=== PATIENT | male | born 1955 | race African-American/Black ===

== ENCOUNTER 2018-09-15 09:11 | Inpatient (IN) | payer BC ==
[2018-09-14 18:10] VITALS: Ht 177.8 cm; Wt 113.6 kg
[~2018-09-15] VITALS: Ht 177.8 cm; Wt 113.6 kg
[2018-09-15] VITALS (17 sets, daily range): BP systolic 110–142; BP diastolic 63–88; PULSE 62–95; RESP 13–19
[~2018-09-15 09:11] MED LIST: BENA40TA56 PO; HYDR12.58 PO; SIMV20TA2 PO; VASOPRESSIN 20 UNITS INJ IV ONE; [UNRECOGNIZED DRUG - REMARK]
[2018-09-15] MEDS ORDERED: CEFAZOLIN 2 GM/50 ML (PMX) 50 ML (FOR WT < 120 KG) IVPB ONE (09:30)
[2018-09-15] MEDS ORDERED: LACTATED RINGER'S 1,000 ML IV SCH (09:30)
[2018-09-15] MEDS ORDERED: GABA300C16 ORAL (10:19)
[2018-09-15] MEDS ORDERED: SIMV20TA20 ORAL (10:19)
[2018-09-15] MEDS ORDERED: HYDR-3672 ORAL (10:19)
[2018-09-15] MEDS ORDERED: AMLO5TAB4 PO (10:19)
[2018-09-15] MEDS ORDERED: BENA1TAB14 ORAL (10:19)
[2018-09-15] MEDS ORDERED: ESCI10TA48 ORAL (10:19)
[2018-09-15] MEDS ORDERED: CHOL100062 PO (10:19)
[2018-09-15] MEDS ORDERED: TAMS-14 PO (10:19)
[2018-09-15] MEDS ORDERED: ALLO100T ORAL (10:26)
--- NOTE | 2018-09-15 10:50 | HPN ---
Date/Time of Note Date/Time of Note DATE: 09/15/18 TIME: 10:50 Interval H&P Admission Note Pt. seen H&P reviewed: No system changes patient evaluated today and H&P dictated. BETH POLANCO MD Sep 15, 2018 10:50
[2018-09-15] MEDS ORDERED: THROMBIN 5000 UNIT (RECOTHROM) VIAL ONE (12:20)
[2018-09-15] MEDS ORDERED: LIDOCAINE 1%/EPI 30 ML INJ ONE (12:20)
[2018-09-15] MEDS ORDERED: GELATIN SIZE 100 SPONGE ONE (12:20)
[2018-09-15] MEDS ORDERED: POLYMYXIN/BACITRACIN 1L IRRIG ONE (12:21)
[2018-09-15] MEDS ORDERED: LIDOCAINE 0.5% (SDV) 50 ML INJ ONE (12:21)
--- NOTE | 2018-09-15 12:25 | PREAC ---
Date/Time of Note Date/Time of Note DATE: 09/15/18 TIME: 12:22 Anesthesia Eval and Record Evaluation Time Pre-Procedure Interview DATE: 09/15/18 TIME: 12:22 Age 63 Sex male NPO: 8 hrs Preoperative diagnosis cervical stenosis Planned procedure cervical 3 to five discectomy and corpectomy and instrumentation Past Medical History Past Medical History: Includes Cardio: HTN Pulm: Smoking Hx Neuro: Peripheral neuropathy Musculoskeletal: Osteoarthritis GI: Obesity Psych: Anxiety Surgery & Anesthesia Issues No known issue Meds Anticoagulation: No Beta Franko within 24 hr: No Reason Beta Franko not given: Pt. not on B-Franko Reported Medications Allopurinol* (Allopurinol*) 100 Mg Tablet, 1 TAB ORAL DAILY 09/15/18 Simvastatin (Simvastatin) 20 Mg Tablet, 1 TAB ORAL DAILY 09/15/18 Amlodipine Besylate* (Norvasc*) 5 Mg Tablet, 5 MG PO DAILY, TAB 09/15/18 Tamsulosin Hcl* (Flomax*) 0.4 Mg Cap.er.24h, 0.4 MG PO DAILY, CAP 09/15/18 Benazepril-Hydrochlorothiazide (Benazepril-Hydrochlorothiazide) 20-25 Mg Tablet, 1 TAB ORAL DAILY 09/15/18 Gabapentin* (Gabapentin*) 300 Mg Capsule, 1 CAP ORAL BID 09/15/18 Escitalopram Oxalate* (Escitalopram Oxalate*) 10 Mg Tablet, 1 TAB ORAL DAILY 09/15/18 Cholecalciferol* (Vitamin D3*) 1,000 Unit Tablet, 2000 UNIT PO DAILY, TAB 09/15/18 Hydralazine Hcl* (Apresoline*) 50 Mg Tab, 1 TAB ORAL TID 09/15/18 Discontinued Reported Medications Simvastatin (Simvastatin) 20 Mg Tablet, 20 MG PO HS 03/17/12 Hydrochlorothiazide* (Hydrochlorothiazide*) 12.5 Mg Tablet, 12.5 MG PO DAILY 03/17/12 Benazepril Hcl* (Benazepril Hcl*) 40 Mg Tablet, 40 MG PO DAILY 03/17/12 [New Meds Today] No Conflict Check 07/26/09 Current Medications Lactated Ringer's 1,000 ml @ 25 mls/hr Q24H IV ; Start 09/15/18 at 09:30 Meds reviewed: Yes Allergies Coded Allergies: No Known Allergies (Verified Allergy, Mild, 09/15/18) Allergies Reviewed: Yes Labs/Studies Labs Reviewed: Reviewed by anesthesiologist Blood Bank Test 09/15/18 10:00 Antibody Screen NEGATIVE Blood Type A POSITIVE test: N/A Pre-procedure Exam Last vitals Vital Signs Date Temp Pulse Resp B/P (MAP) Pulse Ox O2 O2 Flow FiO2 Time Delivery Rate 09/15/18 98.2 62 16 119/64 98 Room Air 10:11 (82) Airway: Adequate mouth opening, Adequate thyromental dist Mallampati: Mallampati IV Teeth: Normal Lung: Normal Heart: Normal ASA Physical Status ASA physical status: 3 Emergency: None Pre-operative Attestations Prior to commencing anesthesia and surgery, the patient was re-evaluated, there was verification of: *The patient's identity *The results of appropriate recent lab work and preoperative vital signs *The above evaluation not changing prior to induction *Anesthetic plan, risk benefits, alternative and complications discussed with patient/family; questions answered; patient/family understands, accepts and wishes to proceed. DAVID ALONZO DO Sep 15, 2018 12:25
[2018-09-15] MEDS ORDERED: LABETALOL HCL 20MG INJ IV PRN (12:30)
[2018-09-15] MEDS ORDERED: hydrALAzine 20 MG INJ IV PRN ×2 (12:30→17:00)
[2018-09-15] MEDS ORDERED: HYDROmorphONE 1 MG/5 ML IV SYRINGE IV PRN ×3 (12:30)
[2018-09-15] MEDS ORDERED: MIDAZOLAM 1 MG/ML 2 ML INJ ONE (12:37)
[2018-09-15] MEDS ORDERED: LIDOCAINE 1% (MDV) 20 ML INJ ONE (12:37)
[2018-09-15] MEDS ORDERED: ROCURONIUM 50 MG INJ ONE (12:37)
[2018-09-15] MEDS ORDERED: DESFLURANE 15 MIN ONE (12:37)
[2018-09-15] MEDS ORDERED: SUCCINYLCHOLINE CHLORIDE 100 MG/5 ML SYG IV ONE (12:37)
[2018-09-15] MEDS ORDERED: PROPOFOL 20 ML ONE (12:37)
[2018-09-15] MEDS ORDERED: EPINEPHrine 0.1 MG/ML SYG ONE (12:37)
[2018-09-15] MEDS ORDERED: CEFAZOLIN 1 GM INJ ONE (13:06)
--- NOTE | 2018-09-15 13:40 | PN ---
Date/Time of Note Date/Time of Note DATE: 09/15/18 TIME: 13:30 Assessment/Plan Lines/Catheters IV Catheter Type (from Nrsg): Saline Lock Subjective 24 Hr Interval Summary Procedure aborted prior to any surgical treatment per anesthesiologist Matty Lyons DO. Patient experiencing frequent PVC and hypotension and felt unsafe to proceed per anesthesiologist. He stated that he will call cardiology but given this, patient will need outpatient work-up and to be reschedule once cleared. . Exam/Review of Systems Vital Signs Vitals Vital Signs Date Temp Pulse Resp B/P (MAP) Pulse Ox O2 O2 Flow FiO2 Time Delivery Rate 09/15/18 98.2 62 16 119/64 98 Room Air 10:11 (82) BETH POLANCO MD Sep 15, 2018 13:40
--- NOTE | 2018-09-15 14:49 | PREOPHP ---
DATE OF ADMISSION: 09/15/2018 HISTORY OF PRESENT ILLNESS: The patient is a 63-year-old male who was initially sent to me for incid ental skull lesion seen after the patient had closed head trauma in November 2017. The patient had be en hospitalized at [facility]. Subsequently, the patient noticed progressive problems with falling and loss of fine motor coordination and numbness in his hands and fingers. The patient also had some memory issues and has a history of a seizure for which he has been taking Keppra. The patie nt also reports some urinary urgency. The patient was actually referred for his skull lesion, but wa s found to have a hyperflexion exam and therefore an MRI of cervical spine was performed. This showe d some congenital stenosis, but most severe at the C3-C4 and C4-C5 levels where there is cord signal change. PAST MEDICAL HISTORY: Significant for gout, hypertension, hypercholesterolemia, prostatic hypertroph y. PAST SURGICAL HISTORY: Significant for knee surgery in the right meniscus in March of 2016. FAMILY HISTORY: The patient denies any inherited medical family diseases. SOCIAL HISTORY: The patient occasionally drinks alcohol. Reports he is a nonsmoker. Denies any his tory of illicit drug abuse. The patient also has a history of a kidney stone and has had kidney ston es. MEDICATIONS: 1. Hydralazine 20 mg. 2. Vitamin D3. 3. Allopurinol. 4. . 5. Escitalopram 10 mg daily. 6. Gabapentin 300 mg b.i.d. 7. Tamsulosin 0.4 mg daily. 8. Amlodipine 5 mg daily. ALLERGIES: PATIENT HAS NO KNOWN DRUG ALLERGIES. REVIEW OF SYSTEMS: A 12-point review of systems was performed. Pertinent positives and negatives ar e listed in the History of Present illness above. CONSTITUTIONAL: The patient denies fevers or chills, or weight loss. HEMATOLOGIC: Denies a history of easy bruising or bleeding. PHYSICAL EXAMINATION: VITAL SIGNS: The patient's temperature is 98.2, pulse 62, respirations 16, blood pressure 119/64, sa turating 98% on room air. GENERAL: The patient is well-developed, well-nourished, late middle-aged -[place] male lying in the hospital bed in no acute distress. HEAD AND NECK: He is normocephalic, atraumatic. His neck is supple, nontender. He did not have a S purling sign or Lhermitte sign, but the reports posterior and axial neck pain with motion, though thi s is mild. CARDIAC: Regular rate and rhythm. LUNGS: Clear to auscultation. ABDOMEN: Nontender, nondistended, soft. EXTREMITIES: No clubbing, cyanosis, or edema. NEUROLOGIC: Patient is awake, alert, and oriented x3, fluent speech, follows commands readily approp riately. He has normal attention and concentration and grossly intact remote immediate and recent me bob. Cranial nerves II through XII are serially tested and are intact. Motor examination is deltoi d, biceps, wrist extension and medical professionals are all 4+/5 grossly on the right. His iliopsoas was 4+. Cayetano ceps is 4/5 though he does not have any problems appears to be somewhat due to that and 4+/5 right ex tensor hallus longus bilaterally, otherwise 5/5. The patient had hyperreflexia with 3+ deep tendon r eflexes in the biceps, triceps, brachioradialis, 1+ patella, and 2+ ankle. He did not have clonus but he had a positive Piero sign bilaterally. He had grossly intact sensation to light touch except for his big toe. The patient does have a resting tremor in both hands a slight pill-rolling motion. ASSESSMENT AND PLAN: A 63-year-old male with cervical myelopathy stenosis. I discussed the patient' s signs, symptoms, physical examination and radiographic findings with him again and discussed the na ture of the procedure performed. The patient is to have , C3 -C4, C4-C5 ACDF of C4 corpectomy and fu sue with a synthetic graft and plate. I again discussed in detail. Risks, benefits, and alternativ es of surgical intervention with the patient. The patient expressed understanding and agreement of s urgical indications and risk and, alternatives and would like to proceed with surgery. The patient i s scheduled for surgery today. The patient has been cleared by his primary physician for surgical tr eatment at Low risk. Dictated By: BETH POLANCO MD, LG/MARNIE Conf#: [id number] DID#: [id number]
[2018-09-15] MEDS ORDERED: MAGNESIUM SULFATE 2 GM/50 ML 50 ML IVPB ONE (15:30)
[2018-09-15] MEDS ORDERED: ONDANSETRON 4 MG INJ IV PRN (15:30)
[2018-09-15] MEDS ORDERED: ACETAMINOPHEN 325 MG TAB PO PRN (15:30)
[2018-09-15] MEDS ORDERED: DOCUSATE SODIUM 100 MG CAP PO PRN (15:30)
[2018-09-15] MEDS: SOD CHLORIDE 0.9% 1,000 ML IV SCH (16:04)
[2018-09-15] MEDS: GABAPENTIN 100 MG CAP PO SCH (21:31)
--- NOTE | 2018-09-15 21:58 | HP ---
DATE OF ADMISSION: 09/15/2018 HISTORY OF PRESENT ILLNESS: This is a 63-year-old male with a past medical history of hypertension, hyperlipidemia, history of enlarged heart, who had been seen by Dr. De Anda and Dr. Polanco for the pa st few months for bilateral upper extremity numbness, was found to have C3, C4, C5 stenosis and was s cheduled with Dr. Polanco for C3, C4, C5 anterior cervical diskectomy, fusion, corpectomy. However, according to the anesthesiologist, the anesthesia started at 12:29 and his blood pressure on admissio n was normal and around 12:45 the patient became hypotensive and bradycardic. The patient was given , lidocaine, fentanyl succinate. The blood pressure went to as low as systolic of 50s. The pat ient also became bradycardic to 30s. The patient was given epinephrine and blood pressure came up an d was transferred to PACU. The patient also received 2 liters of fluid. The patient's surgery was ab orted. According to the patient, he took his 3 blood pressure medications this morning. He does not usually check his blood pressure at home. Since last 3 to 4 years, the patient has multiple episode s of passing out. He usually feels dizzy. Currently, blood pressure is 127/75, afebrile, heart rate is 80, respiration rate and 15, saturating 95% currently denies any chest pain, any shortness of colin ath. PAST MEDICAL HISTORY: 1. Hypertension. 2. Hyperlipidemia. 3. BPH. 4. Depression. 5. Gout. 6. Kidney stones. ALLERGIES: NONE. PAST SURGICAL HISTORY: 1. Left third broken finger repair. 2. Right meniscal surgery. 3. Hernia repair. SOCIAL HISTORY: Occasionally drinks alcohol and sometimes drink beer. Denies any smoking, any recre ational drug use. Lives in [place]. FAMILY HISTORY: Noncontributory. HOME MEDICATIONS: 1. Flomax 0.4. 2. Amlodipine 5. 3. Benazepril. 4. Hydrochlorothiazide 20/25. 5. Hydralazine 50 t.i.d. 6. Simvastatin 20. 7. Escitalopram. 8. Gabapentin 300 b.i.d. 9. Cholecalciferol. 10. Allopurinol. REVIEW OF SYSTEMS: The patient currently denies any chest pain, any shortness of breath. Has chroni c dizziness and also numbness in the bilateral upper extremities. Denies any abdominal pain, nausea, vomiting, diarrhea. Denies any urinary symptoms currently. Denies any fevers and chills. PHYSICAL EXAMINATION: VITAL SIGNS: Temperature 98.0, pulse currently 95, respirations 19, blood pressure 110/63. GENERAL: The patient is awake, alert, oriented, does not appear to be in any acute distress. HEENT: Pupils equal, round, reactive to light. NECK: Supple, no JVD. LUNGS: Clear to auscultation bilaterally. ABDOMEN: Soft, nontender, nondistended, positive normoactive bowel sounds. EXTREMITIES: No clubbing, cyanosis, or edema. DIAGNOSTIC DATA: Currently. LABORATORY DATA: White count 4.7, hemoglobin 11.1, platelet count is 165. Mag 1.6, troponin less th an 0.012. EKG is pending. ASSESSMENT AND PLAN: This is a 63-year-old male who presented with: 1. Hypotension, bradycardia status post anesthesia. The patient takes usually 3 blood pressure medi cations at home. The patient had slight normotensive before surgery today, could be anesthesia effec t. Could have underlying cardiac etiology. The patient has episodes of dizziness before or could it be because of blood pressure medications. 2. Hypomagnesemia. 3. History of hypertension. 4. Hyperlipidemia. 5. History of kidney stones. 6. History of BPH. 7. Depression. 8. Neuropathy. 9. Cervical stenosis. PLAN: At this period of time, the patient will be admitted to [facility]. We will replace the magnesium. We will get EKG, echo. Her blood pressure medication will be on hold. We will start the patient on gentle IV fluids. Rest of the treatment will depend on the patient's hospitalization course. Dictated By: QUYEN ELDER/MARNIE Conf#: [id number] DID#: [id number] CC: BETH POLANCO MD;*[facility]*
[2018-09-16] VITALS: BP 131/70; PULSE 62; RESP 18
[2018-09-16 04:00] VITALS: BP 117/68; PULSE 58; RESP 18
[2018-09-16] MEDS ORDERED: PANTOPRAZOLE (EC) 40 MG TAB PO SCH (06:00)
[2018-09-16] MEDS: SOD CHLORIDE 0.9% 1,000 ML IV SCH (06:23)
--- NOTE | 2018-09-16 07:18 | CONS ---
DATE OF ADMISSION: 09/15/2018 DATE OF CONSULTATION: 09/15/2018 REASON FOR CONSULTATION: Hypotension. Rule out acute coronary syndrome. REQUESTING PHYSICIAN: Dr. Gallardo. HISTORY OF PRESENT ILLNESS: Mr. Vazquez is a 63-year-old male with a history of hypertension, dyslipidemia, BPH, knee surgery in 03/2016, who states that he had a fall in 11/2017, closed head trauma, landing on his head and thereafter has had some memory issues, a seizure for which he is taking Keppra and numbness, weakness and pain in his hands bilaterally. The patient had undergone an MRI and workup and showed stenosis most severe at C3-C4 and C4-C5 with cord signal change. The patient was thus brought by Dr. Silveira for spinal surgery today and what appears to be during induction had a drop in blood pressures, unclear if the patient was intubated and the patient's surgery was canceled. The patient at this time is in the postanesthesia care unit and has currently improvement in systolic blood pressure, most recently 130/85, pulse 80, respiratory rate 18, satting 19. Denies chest pain, shortness of breath. The patient denies any prior cardiac history. PAST MEDICAL HISTORY: As above in HPI. MEDICATIONS CURRENTLY IN HOSPITAL: 1. Allopurinol 100 mg daily. 2. Lexapro 10 mg daily. 3. Protonix 40 mg daily. 4. Gabapentin 100 mg b.i.d. 5. Zofran. 6. Tylenol. 7. Colace. 8. IV fluid hydration at 70 mL an hour. ALLERGIES: NO KNOWN DRUG ALLERGIES. SOCIAL HISTORY: No current tobacco, ETOH or illicit drug use. FAMILY HISTORY: No history of sudden cardiac or early CAD. REVIEW OF SYSTEMS: As above in HPI. CONSTITUTIONAL: No fevers, chills. PULMONARY: No current shortness of breath. CARDIOVASCULAR: No current chest pain. GASTROINTESTINAL: No vomiting. GENITOURINARY: No hematuria. MUSCULOSKELETAL: Degenerative joint disease. PSYCHIATRIC: No documented psych history. NEUROLOGIC: Numbness or weakness of the hands bilaterally. Recent surgery for skull lesion, cord compression. PHYSICAL EXAMINATION: VITAL SIGNS: Temperature of 98, blood pressure most recently 130/85, pulse 80, respiratory rate 18, satting 99%. GENERAL: The patient is alert, awake, in no acute distress. NECK: JVP approximately 8 to 9 cm of water. CHEST: Fair movement throughout with mildly decreased breath sounds at bases bilaterally. HEART: Regular rate and rhythm. Normal S1, S2, I/ systolic murmur, nondisplaced PMI. ABDOMEN: Positive bowel sounds, soft. EXTREMITIES: No significant pitting edema, 1+ pulses bilateral posterior tibial. LABORATORY DATA: Most recent from today, sodium 138, potassium 3.5, creatinine 1, BUN 13. Troponin negative, White blood count 4.7, platelet count 165. IMAGING STUDIES: No further imaging studies for my review at this time. ECG reveals a sinus rhythm, rate of 74, borderline first degree AV block, nonspecific ST and T abnormalities. IMPRESSION: 1. Hypotension during induction for anesthesia and intubation, currently improved. Assess for acute coronary syndrome. 2. Abnormal electrocardiogram with nonspecific ST-T abnormalities. Assess for acute coronary syndrome. 3. Spinal stenosis with cord compression, pending surgery. 4. Upper extremity weakness and paresthesias, likely due to patient's cord compression. 5. History of skull lesion, status post traumatic fall. 6. Hypertension at baseline. 7. Dyslipidemia. 8. Benign prostatic hypertrophy. RECOMMENDATIONS: 1. At this time, would admit the patient to telemetry monitoring to follow rhythm and rate control closely. 2. We will follow the patient's blood pressure closely at this time off of antihypertensives, but may likely require antihypertensives and therefore at this time offer p.r.n. push as necessary and will consider reinitiation of some of the patient's baseline medications. 3. Check a 2D echo for this patient's ejection fraction, wall motion and major abnormalities. 4. Complete the patient's rule out for myocardial infarction to assess for possible acute coronary syndrome lending to hypertension during induction. 5. Check serial EKGs to assess for any significant ongoing changes; an EKG in morning, EKG for any complaints of chest pain or change in rhythm. 6. Continue the patient's IV hydration. Thank you for allowing me to take part in the care of this patient. I will continue to follow very closely with you with recommendations made as the patient progresses through his inpatient hospital clinical course. Dictated By: KEYLA BARBOZA/MARNIE Conf#: [id number] DID#: [id number] CC: Dr. Oconnor; BETH SILVEIRA MD;*EndCC* MTDD
[2018-09-16 07:24] VITALS: BP 141/82; PULSE 65; RESP 18
[2018-09-16] MEDS: GABAPENTIN 100 MG CAP PO SCH (08:47)
[2018-09-16] MEDS ORDERED: ALLOPURINOL 100 MG TAB PO SCH (09:00)
[2018-09-16] MEDS ORDERED: ESCITALOPRAM 10 MG TAB PO SCH (09:00)
[2018-09-16] MEDS ORDERED: AMLODIPINE 5 MG TAB PO SCH (09:00)
[2018-09-16] MEDS ORDERED: REGADENOSON 0.4 MG/5 ML SYG ONE (11:10)
--- NOTE | 2018-09-16 11:30 | CONS ---
Assessment/Plan Assessment/Plan Hospital Course (Demo Recall) IMPRESSION: 1. Hypotension during induction for anesthesia and intubation, currently improved. Assess for acute coronary syndrome.- now improved and tolerating norvasc 2. Abnormal electrocardiogram with nonspecific ST-T abnormalities. Assess for acute coronary syndrome.- neg trop x 3 3. Spinal stenosis with cord compression, pending surgery. 4. Upper extremity weakness and paresthesias, likely due to patient's cord compression. 5. History of skull lesion, status post traumatic fall. 6. Hypertension at baseline. 7. Dyslipidemia. 8. Benign prostatic hypertrophy. Recc: -Tele -Continue norvasc -Continue IVF -Will f/u echo -Lexiscan stress test today Consultation Date/Type/Reason Admit Date/Time Sep 15, 2018 at 09:11 Initial Consult Date 09/15/18 Type of Consult Cardiology Reason for Consultation Hypotension Requesting Provider: QUYEN RAMIRES MD Date/Time of Note DATE: 09/16/18 TIME: 11:26 Exam/Review of Systems Vital Signs Vitals Vital Signs Date Temp Pulse Resp B/P (MAP) Pulse Ox O2 O2 Flow FiO2 Time Delivery Rate 09/16/18 97.9 65 18 141/82 98 Room Air 07:24 (101) Intake and Output 09/15/18 09/15/18 09/16/18 1515:00 23:00 07:00 IntakeIntake Total 440 ml OutputOutput Total 400 ml 1250 ml BalanceBalance 40 ml -1250 ml Exam Exam Review of Systems: CONSTITUTIONAL: No fevers, chills. PULMONARY: No sob CARDIOVASCULAR: No chest pain/palpitations GASTROINTESTINAL: No nausea/vomiting. GENITOURINARY: No hematuria/dysuria. MUSCULOSKELETAL: No myagias/arthalgias. PSYCHIATRIC: The patient denies depression. NEUROLOGIC: paresthesias Constitutional: alert Psych: no complaints Head: normocephalic ENMT: mucosa pink and moist Neck: supple, jvd (8 cm water) Respiratory: clear to auscultation Cardiovascular: regular rate and rhythm Gastrointestinal: soft, non-tender Musculoskeletal: muscle tone (normal) Extremities: edema (none) Labs Result Diagram: 09/15/18 1432 09/15/18 1432 Results 24hrs Laboratory Tests Test 09/15/18 14:32 09/15/18 17:08 09/15/18 22:12 09/16/18 05:06 White Blood Count 4.7 L Red Blood Count 3.97 L Hemoglobin 11.1 L Hematocrit 34.7 L Mean Corpuscular 87.4 Volume Mean Corpuscular 28.0 L Hemoglobin Mean Corpuscular 32.0 Hemoglobin Concent Red Cell 13.7 Distribution Width Platelet Count 165 Mean Platelet Volume 10.2 Immature 0.200 Granulocytes % Neutrophils % 61.3 Lymphocytes % 28.3 Monocytes % 8.1 Eosinophils % 1.5 Basophils % 0.6 Nucleated Red Blood 0.0 Cells % Immature 0.010 Granulocytes # Neutrophils # 2.9 Lymphocytes # 1.3 Monocytes # 0.4 Eosinophils # 0.1 Basophils # 0.0 Nucleated Red Blood 0.0 Cells # Sodium Level 138 Potassium Level 3.5 Chloride Level 102 Carbon Dioxide Level 28 Anion Gap 8 Blood Urea Nitrogen 13 Creatinine 1.00 Est Glomerular > 60 Filtrat Rate mL/min Glucose Level 110 Calcium Level 9.1 Magnesium Level 1.6 L Troponin I < 0.012 0.020 0.039 Creatine Kinase 279 H 396 H Creatine Kinase 1.1 0.9 Index Creatinine Kinase MB 3.17 H 3.40 H (Mass) B-Type Natriuretic 97 Peptide Triglycerides Level 78 Cholesterol Level 160 LDL Cholesterol, 87 Calculated HDL Cholesterol 57 Cholesterol/HDL 2.8 Ratio Thyroid Stimulating 1.890 Hormone (TSH) Medications Medications Current Medications Sodium Chloride 1,000 ml @ 70 mls/hr [id number] IV Last administered on 09/16/18at 06:23; Admin Dose 70 MLS/HR; Start 09/15/18 at 15:22 Ondansetron HCl (Zofran Inj) 4 mg Q6H PRN IV NAUSEA/VOMITING; Start 09/15/18 at 15:30 Acetaminophen (Tylenol Tab) 650 mg Q6H PRN PO .PAIN 1-3 OR TEMP; Start 09/15/18 at 15:30 Docusate Sodium (Colace) 100 mg Q12H PRN PO .CONSTIPATION; Start 09/15/18 at 15:30 Pantoprazole (Protonix Tab) 40 mg DAILY@06 PO Last administered on 09/16/18at 06:24; Admin Dose 40 MG; Start 09/16/18 at 06:00 Allopurinol (Zyloprim) 100 mg DAILY PO Last administered on 09/16/18at 08:45; Admin Dose 100 MG; Start 09/16/18 at 09:00 Escitalopram Oxalate (Lexapro) 10 mg DAILY PO Last administered on 09/16/18 08:45; Admin Dose 10 MG; Start 09/16/18 at 09:00 Gabapentin (Neurontin) 100 mg BID PO Last administered on 09/16/18at 08:47; Admin Dose 100 MG; Start 09/15/18 at 21:00 Hydralazine HCl (Apresoline) 10 mg Q6H PRN IV SBP>170; Start 09/15/18 at 17:00 Amlodipine Besylate (Norvasc) 5 mg DAILY PO Last administered on 09/16/18 08:47; Admin Dose 5 MG; Start 09/16/18 at 09:00 KEYLA BURGOS Sep 16, 2018 11:30
--- NOTE | 2018-09-16 13:08 | CARRPT ---
DATE OF PROCEDURE: 09/16/2018 REASON FOR STRESS TESTING: Hypotension and electrocardiogram, assess for ischemia. BASELINE VITAL SIGNS AND ELECTROCARDIOGRAM: Blood pressure 150/83, pulse 45. Lexiscan was marked si nus bradycardia, rate of 45, normal axis, normal intervals with inferior Q. PROCEDURE: The patient underwent standard Lexiscan infusion protocol over 10 seconds followed by rad iotracer. The patient's test was stopped at completion of protocol. Maximal achieved blood pressure during the test 139/45. Maximum heart rate during the test 85. ELECTROCARDIOGRAM FINDINGS: The patient developing new Lexiscan-induced ST or T-wave change. The pa candido has no documented PVCs. SYMPTOMS: The patient had no complaints of chest pain, mild shortness breath during stress, resolved in recovery. IMPRESSION: 1. No Lexiscan-induced ST or T-wave changes from baseline abnormalities that are diagnostic for isch emia. 2. Complaints of shortness of breath during stress test that resolved in recovery. 3. No documented chest pain during stress testing. 4. Report of nuclear images to follow. Dictated By: KEYLA BARBOZA/MARNIE Conf#: [id number] DID#: [id number] CC: BETH POLANCO MD;*EndCC*
[2018-09-16 15:07] VITALS: BP 139/76; PULSE 60; RESP 18
--- NOTE | 2018-09-16 16:31 | QN ---
Documentation Comment Was seen and examined HR sometimes in low 40 stress test neg per cards ok to dc with fu holter as OPD WILL DC on 2 meds for bp, cehck bp at home fu pcp and cards in1-2 weeks QUYEN RAMIRES MD Sep 16, 2018 16:31
--- NOTE | 2018-09-16 16:32 | PDOCDIS ---
Discharge Instructions DIAGNOSIS Discharge Diagnosis Hypotension bradycardia neg stress test CONDITION [id number] Patient Condition: [id number] Fair HOME CARE INSTRUCTIONS: [id number] Diet Instructions: [id number] Low Fat /Cholesterol ACTIVITY: [id number] Activity Restrictions: [id number] Slowly Increase Activity Rest between Activity FOLLOW UP/APPOINTMENTS Follow-up Plan fu PCP in 1 week fu cards in1 -2 weeks only take benazepril/hctz combination and amloidipine check bp at home if high then take hydrazine QUYEN RAMIRES MD Sep 16, 2018 16:32
--- NOTE | 2018-09-16 19:14 | RADRPT ---
Echocardiogram Report Patient Name: Sergey BUENROSTRO ID: [id number] : 1955 (63y 5m)Study Date: 09/16/2018 11:39:57 AM Gender: MAccession #: [id number] Tech: Alen Stewart [facility] Location: 604-[address] Ref.Physician: QUYEN RAMIRES Height(Cm): BSA: Weight(Kg): Quality: AdequateOrder Physician: QUYEN RAMIRES Account #: Procedures: Echocardiographic Report: Transthoracic echocardiogram with complete 2D, M-Mode, and doppler examination. Indications: Hypotension. Measurements: 2D/M Mode Doppler Measurement Value Normal Range Measurement Value Normal Range LVIDd 2D 4.8 [ 4.2 - 5.8 ] cm AV Peak Cheko 1.6 [ 100.0 - 170.0 ] cm/sec LVIDs 2D 3.4 [ 2.5 - 4.0 ] cm AV Peak PG 10.0 [ 2.0 - 9.0 ] mmHg LVPWd 2D 1.3 [ 0.6 - 1.0 ] cm LVOT Peak Cheko 0.8 [ 70.0 - 110.0 ] cm/sec IVSd 2D 1.3 [ 0.6 - 1.0 ] cm LVOT Peak PG 3.0 [ 2.0 - 6.0 ] mmHg AoR Diam 2D 2.0 [ 2.6 - 3.4 ] cm MV E Peak Cheko 0.8 [ 60.0 - 130.0 ] cm/sec EDV 2D 106.0 [ 62.0 - 150.0 ] ml MV A Peak Cheko 0.9 [ 100.0 - 120.0 ] cm/sec ESV 2D 48.5 [ 21.0 - 61.0 ] ml MV E/A 0.9 [ 0.8 - 1.5 ] ratio EF 2D 54.2 [ 52.0 - 72.0 ] percent MV Decel Time 201 [ 104 - 258 ] msec LA Dimen 2D 3.9 [ 3.0 - 4.0 ] cm Lat E` Cheko 0.1 [ 10.0 - 15.0 ] cm/sec Lateral E/E` 12.3 [ 1.0 - 2.0 ] ratio Med E` Cheko 0.1 cm/sec MV E/A 0.9 [ 0.8 - 1.5 ] ratio TR Peak Cheko 2.4 [ 100.0 - 280.0 ] cm/sec TR Peak PG 23.0 mmHg RVSP 31.0 [ 10.0 - 36.0 ] mmHg Findings: Left Ventricle: Normal left ventricular systolic function. Normal left ventricular cavity size. Mild concentric left ventricular hypertrophy. Ejection fraction is visually estimated at 55 %. Tissue Doppler/Mitral Doppler indices are consistent with impaired relaxation (Stage I diastolic dysfunction). Right Ventricle: Normal right ventricular size. Normal right ventricular systolic function. Left Atrium: The left atrium is normal in size. Right Atrium: The right atrium is normal in size. Mitral Valve: Mild mitral leaflet calcification. Mild mitral annular calcification. Trace mitral regurgitation. Aortic Valve: No significant aortic stenosis or insufficiency. Aortic cusps appear mildly calcified. Tricuspid Valve: Normal appearance of the tricuspid valve. The estimated Peak RVSP is 31 mmHg. There is mild tricuspid regurgitation. Pericardium: Normal pericardium with no significant pericardial effusion. Aorta: Normal aortic root. IVC: Normal size and no respiratory collapse consistent with elevated right atrial pressure. Conclusions: Normal left ventricular systolic function. Normal left ventricular cavity size. Mild concentric left ventricular hypertrophy. Ejection fraction is visually estimated at 55 %. Tissue Doppler/Mitral Doppler indices are consistent with impaired relaxation (Stage I diastolic dysfunction). Mild mitral leaflet calcification. Mild mitral annular calcification. Trace mitral regurgitation. Normal appearance of the tricuspid valve. The estimated Peak RVSP is 31 mmHg. There is mild tricuspid regurgitation. Electronically Signed By: Walter Perez 2018-09-16 19:14:06 PDT
--- NOTE | 2018-09-17 03:25 | DS ---
DATE OF ADMISSION: 09/15/2018 DATE OF DISCHARGE: 09/16/2018 HISTORY OF PRESENT ILLNESS AND HOSPITAL COURSE: This is a 63-year-old male with a past medical histo ry of hypertension, hyperlipidemia, history of enlarged heart, had been seen by Dr. De Anda and Dr. Jag britt for past few months for bilateral upper extremity numbness, found to have C3, C4, C5 stenosis, scheduled for cervical diskectomy, fusion corpectomy. According to the anesthesiologist, the anesthe minna started at 12:29, his blood pressure on admission was normal. Around 12:45, the patient became h ypotensive and bradycardic. Blood pressure went as low as systolic of 50s. The patient became terrie cardic to 30s. The patient was given lidocaine, desflurane, fentanyl as a part of anesthesia. The p atient also received 2 liters of fluid. Surgery was aborted. The patient also took blood pressure m edications in the morning on admission. On my examination, blood pressure was 110/63. Heart exam wa s normal. Neuro exam was nonfocal. White count 4.7, hemoglobin 11.1, platelet count 165. Mag was 1 .6. Troponin less than 0.012. The patient was seen by cardiology consultation with Dr. Perez. Th e patient was started on IV fluids. EKG showed nonspecific ST-T wave abnormalities. The next day, t he patient's condition improved. Blood pressure was in 130s to 140s. The patient also had a stress test which was negative for any ischemia. EF was 50%; however, occasionally patient was having a hea rt rate of low of 40s. Discussed with cardiology. The patient will get a TSH checked today and will follow up with cardiology as an outpatient for possible Holter and spoke to Dr. Silveira. FINAL DISCHARGE DIAGNOSES: 1. Hypotension and bradycardia, could be secondary to anesthesia effect. Stress test negative for i schemia. Heart rate low as 1 to 2 times 40s. The patient will need a Holter as an outpatient. 2. History of hypertension; however, normotensive now. The patient will be discharged on 2 blood pr essure medications. The third medication the patient was instructed to take based on blood pressure parameters. 3. Hyperlipidemia. 4. Benign prostatic hypertrophy. 5. Depression. 6. Gout. 7. History of kidney stones. DISCHARGE CONDITION: Stable. DISCHARGE DIET: 2 gram sodium. DISCHARGE MEDICATIONS: Continue with home medications of: 1. Allopurinol 100. 2. Norvasc 5. 3. Benazepril. 4. Hydrochlorothiazide 20/25. 5. Lexapro. 6. Gabapentin 300 b.i.d. 7. Simvastatin. 8. Flomax. DISCHARGE INSTRUCTIONS: The patient was instructed to hold hydralazine p.o. t.i.d. and lab was sent for TSH and patient will be followed by cardiology office in 1 to 2 weeks and PCP's office in 1 to 2 weeks. Dictated By: QUYEN ELDER/MARNIE Conf#: [id number] DID#: [id number] CC: BETH SILVEIRA MD;*[facility]*
--- NOTE | 2018-09-18 16:05 | RADRPT ---
Vent Rate: 49 bpm RR Interval: 1228 msec OH Interval: 218 msec QRS Duration: 93 msec QT Interval: 426 msec QTC Interval: 384 msec P-R-T Davey: 33 - 44 - 44 degrees Sinus bradycardia...rate< 50 Electronically Signed By: Rosalino Ritter
== END 2018-09-16 18:38 | disposition home or self-care (01) | DRG 552 ==
LOC: REC 09:11 → 6WM 16:44
PROVIDERS: ADMIT Neurological Surgery; ATTEND Neurological Surgery
DX: M48.02 Spinal stenosis, cervical region (principal); G95.29 Other cord compression; Z53.09 Procedure and treatment not carried out because of other contraindication; I10 Essential (primary) hypertension; E78.5 Hyperlipidemia, unspecified; I95.2 Hypotension due to drugs; T41.1X5A Adverse effect of intravenous anesthetics, initial encounter; Y92.234 Operating room of hospital as the place of occurrence of the external cause; R00.1 Bradycardia, unspecified; N40.0 Benign prostatic hyperplasia without lower urinary tract symptoms
CPT/HCPCS: 78452; 80048; 80061; 82550; 82553; 83735; 83880; 84443; 84484; 85025; 86850; 86900; 86901; 93005; 93017; 93306; A9500; A9505; J0171; J0690; J2250; J2785; J3010; J3475; J7030; J7120